=== PATIENT | female | born 1995 | race Caucasian/White ===

== ENCOUNTER 2017-01-03 10:45 | Day surgery (SDC) ==
[2017-01-03] MEDS ORDERED: PEPCID ONE (11:17)
[2017-01-03] MEDS ORDERED: REGLAN ONE (11:17)
[2017-01-03] MEDS ORDERED: TRANSDERM-SCOP ONE (11:17)
[2017-01-03] MEDS ORDERED: LR 1,000 ML ONE ×2 (11:17→15:13)
[2017-01-03] MEDS ORDERED: ZOFRAN ONE (14:51)
[2017-01-03] MEDS: MORPHINE ONE ×3 (14:59→15:19)
[2017-01-03] MEDS ORDERED: FENTANYL ONE (15:00)
[2017-01-03] MEDS ORDERED: DIPRIVAN 1% ONE (15:01)
[2017-01-03] MEDS ORDERED: QUELICIN (DOSE) ONE (15:13)
[2017-01-03] MEDS ORDERED: ZEMURON ONE (15:13)
[2017-01-03] MEDS ORDERED: DECADRON ONE (15:13)
[2017-01-03] MEDS ORDERED: XYLOCAINE-MPF 2% ONE (15:13)
[2017-01-03] MEDS ORDERED: ROBINUL ONE (15:13)
[2017-01-03] MEDS ORDERED: NEOSTIGMINE ONE (15:13)
[2017-01-03] MEDS ORDERED: ZOFRAN ODT SL PRN (16:58)
[2017-01-03] MEDS: LR 1,000 ML IV SCH (17:00)
[2017-01-03] MEDS: HYDROCODONE/APAP 7.5-325/15 ML PO PRN ×2 (18:40→23:31)
[2017-01-03] MEDS: PERIDEX MT SCH (20:14)
--- NOTE | 2017-01-03 20:38 | OPERATIVE NOTE ---
PROCEDURE DATE: 01/03/2017 PREOPERATIVE DIAGNOSES: 1. Chronic tonsillitis refractory to medical therapy. 2. Obstructive sleep apnea. POSTOPERATIVE DIAGNOSES: 1. Chronic tonsillitis refractory to medical therapy. 2. Obstructive sleep apnea. PROCEDURE: T and A. SURGEON: Jake Cruz MD ANESTHESIA: General endotracheal. INDICATIONS: The patient is a 21-year-old with chronic tonsillitis refractory to medical therapy as well as obstructive sleep apnea. PROCEDURE: The patient was brought into the operating room and placed supine on the operating table. Satisfactory general endotracheal anesthesia was administered. The patient was prepped and draped in the usual manner for tonsillectomy. The Amilcar-Luis mouth gag was inserted and positioned with a Crowe stand. The tonsils were exposed. The right tonsil was grasped with a straight Allis clamp. The capsule was identified and the Bovie used to dissect the tonsil free from its fossa in the usual manner. Hemostasis was obtained with suction cautery. The left tonsil was removed in a like manner. Attention was turned to the adenoid pad. The retraction catheter was placed into the nose and out through the mouth. The adenoid pad was noted to be moderately obstructing. The obstructing portion was removed with cautery. Care was taken to leave an inferior rim of adenoid tissue. Irrigation was performed. The operative site was noted to be dry. When this was completed, we felt it was a successful procedure. The patient was awakened from anesthesia and taken to the recovery room in satisfactory condition.
[2017-01-04] MEDS: LR 1,000 ML IV SCH (04:04)
[2017-01-04] MEDS: HYDROCODONE/APAP 7.5-325/15 ML PO PRN ×2 (04:24→09:01)
[2017-01-04] MEDS ORDERED: DECADRON IV ONE (08:00)
[2017-01-04 08:02] VITALS: BP 117/61
[2017-01-04] MEDS: PERIDEX MT SCH (09:04)
== END 2017-01-04 09:13 | disposition home or self-care (01) ==
LOC: PAT 10:45 → UNDOADMOB 16:12 → SURHOLD 16:12 → 4N 16:41 → SURHOLD 16:41 → PAT 01-04 09:13 → UNDODISOB 01-04 09:13
PROVIDERS: ATTEND Otolaryngology
DX: J35.01 Chronic tonsillitis (principal); G47.33 Obstructive sleep apnea (adult) (pediatric); Z79.899 Other long term (current) drug therapy; E66.01 Morbid (severe) obesity due to excess calories; M06.9 Rheumatoid arthritis, unspecified; K21.9 Gastro-esophageal reflux disease without esophagitis; J30.9 Allergic rhinitis, unspecified; Z68.42 Body mass index [BMI] 45.0-49.9, adult
CPT/HCPCS: 84703; 88304; 94761; 94799; J0330; J1100; J2270; J2405; J3010; J7120; J2710